=== PATIENT | male | born 1990 | race Caucasian/White ===

== ENCOUNTER 2017-06-24 06:06 | Emergency (ER) | payer MEDICAID, OTHER ==
[~2017-06-24] VITALS: Ht 177.8 cm; Wt 119.1 kg
[~2017-06-24 06:06] MED LIST: CHLO10TA9 PO; FAMO-96 PO; ONDA4TAB8 PO
[2017-06-24 06:15] VITALS: Ht 177.8 cm; Wt 119.1 kg
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
[2017-06-24] MEDS ORDERED: CLON-412 PO (06:41)
[2017-06-24] MEDS ORDERED: LORAZEPAM 1 MG TAB PO ONE (07:00)
[2017-06-24] MEDS ORDERED: ALPRAZOLAM 1 MG TAB PO ONE (07:00)
== END 2017-06-24 07:25 | disposition home or self-care (01) ==
LOC: FTE 06:06
DX: F41.9 Anxiety disorder, unspecified (principal); F31.9 Bipolar disorder, unspecified; F17.210 Nicotine dependence, cigarettes, uncomplicated
CPT/HCPCS: Z7502; Z7610; 99283